=== PATIENT | female | born 1945 ===

== ENCOUNTER 2019-03-26 11:00 | Emergency (ER) | payer MEDICARE, OTHER ==
[~2019-03-26] VITALS: Ht 162.6 cm; Wt 62.1 kg
[2019-03-26] MEDS ORDERED: SODIUM CHLORIDE 0.9% 1,000 ML IVB ONE (11:47)
[2019-03-26 13:02] LABS: Mean Corpuscular Volume 94.9 fL (80.0-100.0)
[2019-03-26 13:05] LABS: Hematocrit 29.6 % (36.0-46.0); Hemoglobin 9.6 g/dL (12.2-16.2); Mean Corpuscular Hemoglobin 30.8 pg (28.0-32.0); Mean Corpuscular Hgb Conc. 32.5 g/dL (32.0-36.0); Platelet Count (auto) 284 10^3/uL (140-450); Red Blood Cells 3.12 10^6/uL (4.0-5.20); Red Cell Distribution Width 15.1 % (11.8-14.3)
[2019-03-26 13:27] LABS: White Blood Cell 55.6 10^3/uL (4.4-10.8)
[2019-03-26 13:28] LABS: Basophils % (manual) 0 (0.0-2.0); Blast Cells 0; Eosinophils % (manual) 0 (0-7); Metamyelocytes % 0; Monocytes % (manual) 0 (0-12); Myelocytes % 0; Promyelocytes % 0; Reactive Lymphocytes 0
[2019-03-26] MEDS ORDERED: LORazepam 2MG/ML-1ML VIAL IV ONE (13:45)
[2019-03-26 13:50] LABS: Urine Bacteria MOD /hpf (None Seen); Urine Blood Negative /uL (Negative); Urine Hyaline Cast FEW /lpf (0 - 2); Urine Specific Gravity 1.012 (1.001-1.035); Urine WBC 153 /hpf (0 - 5); Urine WBC Clumps PRESENT /hpf (None Seen)
[2019-03-26 13:57] LABS: Albumin 3.7 g/dL (3.4-5.0); Calcium 8.7 mg/dL (8.5-10.1); Potassium 4.6 mmol/L (3.5-5.1)
[2019-03-26 13:59] LABS: Band Neutrophils % (manual) 3; Lymphocytes % (manual) 3 (10.0-50.0)
[2019-03-26 14:00] LABS: BUN/Creatinine Ratio 23.2; Bilirubin, Total 0.9 mg/dL (0.2-1.0); Total Protein 7.2 g/dL (6.4-8.2)
[2019-03-26] MEDS ORDERED: cefTRIAXone 1GM/50ML D5W 50 ML IV ONE (15:00)
[2019-03-26 15:33] VITALS: BP 147/67
[2019-03-26] MEDS ORDERED: ONDANSETRON ODT 4 MG TAB PO ONE (15:45)
== END 2019-03-26 16:03 | disposition home or self-care (01) ==
LOC: ER 11:00
DX: E86.0 Dehydration (principal); N39.0 Urinary tract infection, site not specified; K21.9 Gastro-esophageal reflux disease without esophagitis; E78.5 Hyperlipidemia, unspecified; Z87.891 Personal history of nicotine dependence
CPT/HCPCS: 36415; 80053; 81001; 85007; 85027; 93005; 96361; 96365; 96375; 99284; J0696; J2060; J7030; Q0162